=== PATIENT | male | born 1975 | race Caucasian/White ===

== ENCOUNTER 2018-01-02 12:03 | Emergency (ER) | payer MEDICAID ==
[~2018-01-02] VITALS: Ht 172.7 cm; Wt 74.8 kg
[2018-01-02] MEDS ORDERED: PHENERGAN25 MG PR (12:13)
[2018-01-02] MEDS ORDERED: DICYCLOMINE HCL20 MG PO (12:13)
[2018-01-02] MEDS ORDERED: LISINOPRIL5 MG PO (12:14)
[2018-01-02] MEDS ORDERED: LIPITOR20 MG PO (12:14)
[2018-01-02] MEDS ORDERED: ASPIR 8181 MG PO (12:14)
[2018-01-02] MEDS ORDERED: ATIVAN0.5 MG PO (17:36)
[2018-01-02] MEDS ORDERED: ZOFRAN ODT4 MG PO (17:36)
[2018-01-02] MEDS ORDERED: OMEPRAZOLE20 MG PO (17:37)
[2018-01-03] MEDS ORDERED: CIPRO500 MG PO (11:17)
[2018-01-03] MEDS ORDERED: PHENERGAN50 MG PR (11:17)
== END 2018-01-02 18:20 | disposition home or self-care (01) ==
LOC: ED 12:03
DX: K20.9 Esophagitis, unspecified (principal); E11.65 Type 2 diabetes mellitus with hyperglycemia; Z88.8 Allergy status to other drugs, medicaments and biological substances; Z79.82 Long term (current) use of aspirin; Z79.899 Other long term (current) drug therapy
CPT/HCPCS: 74176; 80053; 81001; 83605; 83690; 85025; 96361; 96374; 96375; 96376; 99284; J1200; J2060; J2550; J2765; J7030